=== PATIENT | female | born 1960 | race African-American/Black ===

== ENCOUNTER 2024-04-06 07:16 | Emergency (ER) | payer OTHER ==
[~2024-04-06] VITALS: Ht 160 cm; Wt 82.0 kg
[2024-04-06 07:22] VITALS: O2SAT 99
[2024-04-06] MEDS ORDERED: KETOROLAC 30MG/ML VIAL IV STA (07:25)
[2024-04-06] MEDS ORDERED: ONDANSETRON HCL 4MG/2ML INJ IV STA (07:25)
[2024-04-06 08:02] LABS: CHLORIDE 108 mEq/L (98-107); POTASSIUM 3.4 mEq/L (3.5-5.1); SODIUM 144 mEq/L (136-145)
[2024-04-06 08:03] LABS: CALCIUM 9.1 mg/dL (8.7-10.4); CARBON DIOXIDE 26 mEq/L (21-32)
[2024-04-06 08:07] LABS: CREATININE 0.7 mg/dL (0.6-1.0)
[2024-04-06 08:08] LABS: GLUCOSE 113 mg/dL (70-105); UREA NITROGEN BLOOD 6 mg/dL (9-23)
[2024-04-06 08:09] LABS: ALANINE AMINOTRANSFERASE 145 IU/L (10-49); ALBUMIN 3.7 g/dL (3.2-4.8); ASPARTATE AMINOTRANSFERASE 350 IU/L (<34); PROTHROMBIN TIME 11.3 sec (9.6-11.0)
[2024-04-06 08:10] LABS: BILIRUBIN DIRECT 1.5 mg/dL (<=3.0); BILIRUBIN TOTAL 2.2 mg/dL (0.1-1.0); PROTEIN TOTAL 6.8 g/dL (6.0-8.3)
[2024-04-06 08:11] LABS: BASOPHILS % 0.5 % (0.0-2.0); HEMATOCRIT. 42.5 % (36.0-48.0); HEMOGLOBIN. 14.2 g/dL (12.0-16.0); MEAN CORPUSCULAR HEMOGLOBIN 38.6 pg (28.0-32.0); MEAN CORPUSCULAR HGB CONC 33.3 g/dL (31.0-37.0); MEAN CORPUSCULAR VOLUME 115.9 fL (81.0-99.0); MEAN PLATELET VOLUME 8.6 fl (7.4-10.4); NEUTROPHILS % 60.5 % (40.0-76.0); PLATELET 142 x1000/uL (130-400); RED BLOOD CELL COUNT 3.67 mill/uL (4.2-5.4); RED CELL DISTRIBUTION WIDTH 16.1 % (11.6-14.6); WHITE BLOOD COUNT 3.5 x1000/uL (4.5-11.0)
[2024-04-06 08:14] LABS: ADD RBC MORPHOLOGY YES; DIFFERENTIAL COMMENT 1
[2024-04-06] MEDS: ONDANSETRON HCL 4MG/2ML INJ IV NR (10:37)
[2024-04-06] MEDS: KETOROLAC 30MG/ML VIAL IV NR (10:37)
[2024-04-06 10:47] LABS: ANISOCYTOSIS 1+; PLATELET ESTIMATE NORMAL
[2024-04-06] MEDS ORDERED: TOPUD PO (12:16)
[2024-04-06 12:56] VITALS: BP 137/62; PULSE 77; RESP 17; TEMP 36.72516; O2SAT 99
== END 2024-04-06 12:59 | disposition home or self-care (01) ==
LOC: ER 07:29
DX: N20.0 Calculus of kidney (principal); R10.11 Right upper quadrant pain; I10 Essential (primary) hypertension; Z88.0 Allergy status to penicillin; Z88.5 Allergy status to narcotic agent; Z98.84 Bariatric surgery status
CPT/HCPCS: 99285; 74176; 96374; 96375; 80076; 80048; 83690; 85025; 85610; 36415; 93005; J1885; J2405

== ENCOUNTER 2025-03-13 14:01 | Emergency (ER) | payer OTHER ==
[~2025-03-13] VITALS: Ht 160 cm; Wt 85.0 kg
[~2025-03-13 14:01] MED LIST: TOPUD PO
[2025-03-13 14:06] VITALS: O2SAT 100
[2025-03-13] MEDS ORDERED: ACET-2708 MT (16:15)
[2025-03-13 16:59] VITALS: BP 140/78; PULSE 85; RESP 17; TEMP 36.6; O2SAT 100
== END 2025-03-13 17:28 | disposition home or self-care (01) ==
LOC: ER 14:01
DX: M79.675 Pain in left toe(s) (principal); I10 Essential (primary) hypertension; Z88.0 Allergy status to penicillin; Z88.5 Allergy status to narcotic agent
CPT/HCPCS: 99283; 73620; A6449